=== PATIENT | male | born 1975 | race Caucasian/White ===

== ENCOUNTER → 2024-09-26 | Outpatient (CLI) | payer OTHER ==
[~2024-09-26] MED LIST: CEPH500 PO
== END ==
LOC: LAB 18:32 → LAB SHORT 18:32
DX: R30.0 Dysuria (principal)
CPT/HCPCS: 87086

== ENCOUNTER 2025-06-10 18:41 | Emergency (ER) | payer OTHER ==
[~2025-06-10] VITALS: Ht 170.2 cm; Wt 77.1 kg
[2025-06-10] MEDS ORDERED: Fluorescein Sod 1MG Opth Strips LEFTEYE ONE (21:05)
[2025-06-10] MEDS ORDERED: Tetracaine HCl/Pf 0.5% Opth Soln 4 ml LEFTEYE ONE (21:05)
[2025-06-10] MEDS ORDERED: Erythromycin 0.5% Opth Oint 1 gm LEFTEYE ONE (21:45)
[2025-06-10] MEDS ORDERED: ERYT.5TO LEFTEYE (21:50)
[2025-06-10 21:59] VITALS: BP 112/80
== END 2025-06-10 22:00 | disposition home or self-care (01) ==
LOC: ER 18:41
DX: T15.02XA Foreign body in cornea, left eye, initial encounter (principal); L03.317 Cellulitis of buttock
CPT/HCPCS: 99282; A9270